=== PATIENT | male | born 1985 | race American Indian/Alaskan Native ===

== ENCOUNTER 2017-01-15 09:58 | Emergency (ER) | payer BC ==
[2017-01-15 10:22] VITALS: BP 128/64
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
== END 2017-01-15 12:08 | disposition home or self-care (01) ==
LOC: ED 09:58
DX: S93.401A Sprain of unspecified ligament of right ankle, initial encounter (principal); F17.200 Nicotine dependence, unspecified, uncomplicated; X58.XXXA Exposure to other specified factors, initial encounter; Y93.9 Activity, unspecified; Y92.9 Unspecified place or not applicable; Y99.9 Unspecified external cause status
CPT/HCPCS: 99282